=== PATIENT | female | born 2000 | race Caucasian/White ===

== ENCOUNTER 2024-12-31 16:13 | Emergency (ER) | payer SELFPAY ==
--- OUTSIDE RECORDS SUMMARY | 2023-01-06 07:45 | XMS_ITS | Continuity of Care Document ---
Author Organization Ailin Weller [facility] Address [facility] [employer] [address] [place] [address] Phone Care Team Providers Care Helicopter Repairer Name Role Phone Andres Boyce DDS Unavailable Unavailable Procedures Procedure Date Limited Oral Evaluation-Problem Focused Panoramic Radiographic Image Ext, Erupt Tth/Expsd Root-Elev &/Or Forc eps Remvl Advance Directives Directive Yes / No Effective Date File Name No Information Encounters Encounter Description Practice Location Reason(s) For Visit Diagnoses Date Provider Providers Copied on Encounter Ailin Head [facility] , [facility] [address] [facility], [place], [address], [place] tel:[phone] [facility] No Information Carli Campos. [address], [id number] [address] [place] [address], [address], [place]. tel:[phone] Family History Family Member Type Diagnosis Age At Onset No Information Payers Payer name Insurance type Covered constitution party ID Authoriza tion(s) D [employer] [facility] CI [id number] D ap Dental [id number] Social History Type Description Quantity Date Captured Comments Sex Female Smoking Status No Information Sexual Orientation Bisexual Gender Identity Female Chief Complaint And Reason For Visit No Information Reason For Referral Reason For Referral No Information History Of Present Illness Encounter Date Complaint History Of Prese nt Illness No Information Functional Status Date Functional Assessmen t No Information Instructions Date Instruction Additional Infor mation No Information Assessments Type Assessment Date No Information Patient Care Teams Name Effective Dates (start - stop) Status Members No Information
--- OUTSIDE RECORDS SUMMARY | 2023-01-06 07:45 | XMS_ITS | Continuity of Care Document ---
Author Organization Ailin Weller [facility] Address [facility]ACT[facility] [address] [place] [address] Phone Care Team Providers Care Pr Internship Name Role Phone Andres Boyce DDS Unavailable Unavailable Procedures Procedure Date Limited Oral Evaluation-Problem Focused Panoramic Radiographic Image Ext, Erupt Tth/Expsd Root-Elev &/Or Forc eps Remvl Advance Directives Directive Yes / No Effective Date File Name No Information Encounters Encounter Description Practice Location Reason(s) For Visit Diagnoses Date Provider Providers Copied on Encounter Ailin Head [facility] , [facility] [address] [facility], [place], [address], [place] tel:[phone] [facility] No Information Carli Campos. [address], [id number] [address] [place] [address], [address], [place]. tel:[phone] Family History Family Member Type Diagnosis Age At Onset No Information Payers Payer name Insurance type Covered green party ID Authoriza tion(s) D [employer] [facility] CI [id number] D ap Dental [id number] Social History Type Description Quantity Date Captured [...]
[2024-12-31 16:24] VITALS: BP 143/84; PULSE 58; RESP 16; TEMP 36.9; O2SAT 100
--- NOTE | 2024-12-31 16:35 | ED.EAR ---
HPI - Ear Problem General Chief complaint: Ear Stated complaint: R ear pain Time Seen by Provider: 12/31/24 16:29 Source: patient and RN notes reviewed Mode of arrival: ambulatory Limitations: no limitations History of Present Illness HPI Narrative: 24-year-old female presents with concern for right ear pain. Reports she just got over a cold that her ear still hurts. She denies any kind nose, stuffy nose fever, drainage from the ear. MD Complaint: ear pain Related Data Allergies Allergy/AdvReac Type Severity Reaction Status Date / Time No Known Allergies Allergy Verified 12/31/24 16:29 Review of Systems Review of Systems: CONSTITUTIONAL: Denies malaise, chills, sweats, or fever. EYES: Denies visual changes, redness, or discharge. ENT: Denies rhinorrhea, congestion, sinus pain, and sore throat. Reports right ear pain CARDIOVASCULAR: Denies chest pain, palpitations, or edema. RESPIRATORY: Denies cough. Denies dyspnea. GASTROINTESTINAL: Denies abdominal pain, nausea, vomiting, diarrhea SKIN: Denies rash or itching. MUSCULOSKELETAL: Denies myalgia. NEUROLOGIC: Denies headache. All systems reviewed & are unremarkable except as noted in HPI and below PMFSH Comments At time of signature, agree with nursing past medical, surgical, social and family history. There is no relevant family history pertinent to the presenting complaint Exam Narrative: GENERAL: Well-appearing, well-nourished, and in no acute distress. HEAD: Normocephalic EYES: PERRLA, conjunctivae clear ENT: Nares clear, turbinates edematous, clear discharge. Mucous membranes moist. TM pearly abernathy with sharp light reflex bilaterally; no tragal tenderness, EAC unremarkable. No post or pre-auricular erythema, induration, or warmth noted. Oropharynx not erythematous without lesions. Tonsils not enlarged and without exudate, no drooling, no hoarseness, no trismus, uvula midline. NECK: Supple. No lymphadenopathy CHEST: Clear to auscultation, breath sounds equal. No wheezing, rhonchi, rales, or stridor. No respiratory distress, speaks in full sentences. HEART: Regular rate and rhythm. No murmur heard. SKIN: Warm, dry, no rash. NEURO: Alert and oriented x3. PSYCH: Normal mood and affect Course Course Emergency Course: Patient is aware of diagnosis, understands and agrees to treatment plan. Anticipatory guidance given. Patient agrees to follow-up as directed and is aware of reasons to seek care at the emergency department. Portions of this record may have been created with voice recognition software Level of Care: [facility] Visit Vital Signs Vital signs: Vital Signs Temperature 98.5 F 12/31/24 16:24 Pulse Rate 58 L 12/31/24 16:24 Respiratory Rate 16 12/31/24 16:24 Blood Pressure 143/84 H 12/31/24 16:24 Pulse Oximetry 100 12/31/24 16:24 Oxygen Delivery Room Air 12/31/24 16:24 Temperature 98.5 F 12/31/24 16:24 Pulse Rate 58 L 12/31/24 16:24 Respiratory Rate 16 12/31/24 16:24 Blood Pressure 143/84 H 12/31/24 16:24 Pulse Oximetry 100 12/31/24 16:24 Oxygen Delivery Room Air 12/31/24 16:24 Reviewed. Medical Decision Making MDM Narrative Medical decision making narrative: I evaluated this in the [facility]. History is obtained from patient who is an independent historian and physical exam was performed.? Available medical records were reviewed. ? Exam findings and relevant testing show no acute concerns or changes; patient is non-toxic appearing and is in no distress. Differential diagnosis considered: Sosa virus, strep pharyngitis, allergic rhinitis, upper respiratory tract infection, sinusitis, rhinosinusitis, nasopharyngitis. viral pharyngitis, otitis media, otitis externa, otitis effusion, pre/post auricular cellulitis, mastoiditis, cerumen impaction, foreign body. Exam findings show no acute concerns or changes; patient is non-toxic appearing and is in no distress. Patient is appropriate for outpatient treatment and follow-up. ? Differential diagnosis and treatment plan were discussed with the patient. Patient agrees with discussion and after shared medical decision making agrees with plan of care. All questions were answered to the patient's satisfaction. Patient is appropriate for outpatient treatment and follow-up. Vital Signs Vital Signs: Vital Signs Temperature 98.5 F 12/31/24 16:24 Pulse Rate 58 L 12/31/24 16:24 Respiratory Rate 16 12/31/24 16:24 Blood Pressure 143/84 H 12/31/24 16:24 Pulse Oximetry 100 12/31/24 16:24 Oxygen Delivery Room Air 12/31/24 16:24 Temperature 98.5 F 12/31/24 16:24 Pulse Rate 58 L 12/31/24 16:24 Respiratory Rate 16 12/31/24 16:24 Blood Pressure 143/84 H 12/31/24 16:24 Pulse Oximetry 100 12/31/24 16:24 Oxygen Delivery Room Air 12/31/24 16:24 Critical Care Time Critical Care Time Critical Care Time: No Discharge Plan Discharge Clinical Impression: Earache on right Patient Disposition: Home Condition: Stable Instructions: Earache (ED) Additional Instructions: Take medication as prescribed Recommend antihistamine such as Benadryl at night time and Zyrtec or Sobia during the day until symptoms improve Flonase nasal spray, 2 sprays in each nostril once daily until symptoms improve Also, recommend symptomatic treatment includes: rest, fluids, and increase humidity of the air at home. Recommend Acetaminophen as directed on the bottle to reduce fever, pain Please schedule a follow-up visit with your personal physician for further evaluation and treatment within 3-5days. If your symptoms persist, change or worsen significantly before you can contact your personal physician then please, without delay, go to the emergency department for further evaluation. Patient Language: Venezuelan Prescriptions: New pseudoephedrine HCl [12 Hour Decongestant] 120 mg tablet extended release 120 mg PO Q12H PRN (Reason: nasal congestion) Qty: 20 0RF fluticasone propionate [Flonase Allergy Relief] 50 mcg/actuation spray,suspension 2 spray NASAL DAILY 14 Days Qty: 15.8 0RF Rx Instructions: administer into each nostril Follow-up/Referrals: PHYSICIAN,LOG HANDLING EQUIPMENT OPERATOR [Primary Care Provider, Internal Medicine] Time of Disposition: 16:38
--- OUTSIDE RECORDS SUMMARY | 2024-12-31 17:13 | XMS_ITS | Clinical Summary ---
Author Organization [address] Address [address] [place] [address] Care Team Providers Care Air Traffic Controller Name Role Phone No, Physician Primary Care Provider [phone] Allergies No known active allergies Medications No known medications Active Problems No known active problems Social History Tobacco Use Types Packs/Day Years Used Date Smoking Tobacco: Never Assessed Comments No Sex and Gender Information Value Date Recorded Sex Assigned at Not on file Legal Sex Female 10:32 AM CDT Gender Identity Not on file Sexual Orientation Not on file Obstetrics History Last Filed Vital Signs Vital Sign Reading Time Taken Comments Blood Pressure 104/70 09/21/2024 3:21 PM CDT Pulse 85 09/21/2024 3:21 PM CDT Temperature 36.4 C (97.6 F) 09/21/2024 3:21 PM CDT Respiratory Rate 18 09/21/2024 3:21 PM CDT Oxygen Saturation 98% 09/21/2024 3:21 PM CDT Inhaled Oxygen Concentration - - Weight 119.3 kg (263 lb) 09/21/2024 3:21 PM CDT Height 162.6 cm (5' 4) 09/21/2024 3:21 PM CDT Body Mass Index 45.14 09/21/2024 3:21 PM CDT Plan of Treatment Health Maintenance Due Date Last Done Comments Cervical Cancer Screening 1998 Depression Screening 1998 Hepatitis C Screening 1998 DTaP/Tdap/Td Vaccine (1 - Tdap) 2009 Varicella Vaccines (1 of 2 - 13+ 2-dose series) 2011 HPV Vaccines (1 - 3-dose series) 2013 Hepatitis B Screening 2016 Regular Well Visit/Exam 18-64 2016 Influenza Vaccine (#1) 2024 Pneumococcal vaccine <65 Aged Out No longer eligible based on patient's age to complete this topic Care Teams Air Traffic Controller Relationship Specialty Start Date End Date No, Physician PCP - General 09/21/24
--- OUTSIDE RECORDS SUMMARY | 2024-12-31 17:13 | XMS_ITS | Patient Health Record ---
Author Organization [facility] [place] Address [address] [facility] [address] [place] [address] Care Team Providers Care Plug Grower Name Role Phone Payton Marin Unavailable [phone] Reason For Referral No Information Medications Medication SIG (Take, Route, Frequency, Duration) Notes Start Date End Date Status Vitamin Si po qd ; Indications: - (-5) Active Social History Social History Sexual History: Social Info Question Answer Notes Sexual History Had sex in the past 12 months (vaginal, oral, or anal)? Yes Drugs/Alcohol: Social Info Question Answer Notes Drugs Have you used drugs other than those for medical reasons in the past 12 months? No Alcohol Screen Did you have a drink containing alcohol in the past year? Yes Points 0 Interpretation Negative Tobacco Use: Social Info Question Answer Notes Tobacco Use/Smoking Are you a former smoker Tobacco use other than smoking: Are you an other tobac co user? No Plan Of Treatment No Information
== END 2024-12-31 16:41 | disposition home or self-care (01) ==
PROVIDERS: Emergency Provider Nurse Practitioner
DX: H92.01 Otalgia, right ear (principal)
CPT/HCPCS: 99203; G0463